=== PATIENT | male | born 1990 ===

== ENCOUNTER 2025-06-01 12:37 | Outpatient (AMB) | payer OTHER, SELFPAY ==
--- NOTE | 2025-06-01 12:38 | MHC.PC.OV ---
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: No Allergies No Known Allergies Allergy (Verified 06/01/25 12:56) Medication List - Last Reconciled 06/01/25 by Benito Carr CNP albuterol sulfate 90 mcg/actuation (Ventolin HFA) 2 puffs inhalation Q6H PRN duloxetine 120 mg PO DAILY lamotrigine 100 mg PO BEDTIME Tobacco use date assessed: 06/01/25 Dental Screening Dental Screen Date: 06/01/25 Did you have a dental visit in the last 12 months?: Yes Did you have a dental problem in the last 6 months where you did not have access to dental care?: No Was dental information given to patient?: Patient has dentist HPI HPI Comments History of Present Illness Details 34-year-old male presents to establish care. He admits to taking his medications as prescribed without adverse reactions. He notes that his anxiety, bipolar, and asthma symptoms are generally well controlled. Prior PCP? - Dr. Bill Last office visit/CPE/labs - About a year ago Acute issue(s) - None Past Medical History - Asthma, anxiety, Bipolar 2 disorder, nausea, work-related lumbar spine injury (was followed [facility]) Surgical History - None Family History - Dad: Anxiety, bipolar disorder, schizophrenia - Mom: Glioblastoma - MGM: Diabetes Social History - Smokes 5-6 cigarettes daily, 13 years smoking hx. Does not vape. Does not drink alcohol. Denies recreational drug use - Has been making healthy dietary choices. Active but does not exercise. Difficulty staying asleep at times, d/t shortness of breath, reports snoring, never had a sleep study Health maintenance - Last eye exam was several years ago. Referred to Ophthalmology for routine eye exam - Last dental visit was over a ago; encouraged to schedule an appointment with his dentist for routine dental care - Last tetanus vaccine was a year ago from PCP. Record not currently available - Has not been vaccinated for the flu this season; declines vaccination Specialists Dr. 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 1. Little interest or pleasure in doing things: several days 2. Feeling down, depressed, or hopeless: several days 3. Trouble falling or staying asleep, or sleeping too much: several days 4. Feeling tired or having little energy: several days 5. Poor appetite or overeating: several days 6. Feeling bad about yourself - or that you are a failure or have let yourself or your family down: several days 7. Trouble concentrating on things, such as reading the newspaper or watching television: several days 8. Moving or speaking so slowly that other people could have noticed. Or the opposite - being so fidgety or restless that you have been moving around a lot more than usual: several days 9. Thoughts that you would be better off or of hurting yourself in some way: not at all Total score: 8 Depression Screening Interpretation: Positive Depression Screening Follow-up: Existing condition and In treatment Depression Screening Done: Yes 44506 - PHQ-9 Billing: Yes Source: Developed by Drs. Quoc Jamison, Trina Nava, Dustin Aguila and colleagues, with an educational jamison from [employer]. Thrive Questionnaire Date Thrive assessed: 06/01/25 I am a: Patient What is your living situation today?: I have a steady place to live Within the past 12 months, did the food you bought not last and you didn't have the money to get more?: Never true Within the past 12 months, did you worry whether your food would run out before you got money to buy more?: Never true Do you have trouble paying for medicines?: No Do you have trouble getting transportation to medical appointments?: No Do you have trouble paying your heating and electricity bill?: No Do you have trouble taking care of your child, family member or friend?: No Do you have trouble with day-to-day activities such as bathing, preparing meals, shopping, managing finances, etc.?: I choose not to answer this question Are you currently unemployed and looking for a job?: I choose not to answer this question Are you interested in more education?: I choose not to answer this question Please select the resources that you would like help with: None Currently or been in a relationship where the following occur: I choose not to answer THRIVE Score: 0 AUDIT C Alcohol Use Questionnaire (AUDIT-C) 1. How often do you have a drink containing alcohol?: Never 3. How often do you have six or more drinks on one occasion?: Never Total Score: 0 Score Reviewed/Action Taken: Yes MARIUM-7 AMB Questionnaire MARIUM-7 Date MARIUM - 7 assessed: 06/01/25 Feeling nervous, anxious, or on edge: 1 = Several days Not being able to stop or control worryin = Several days Worrying too much about different things: 1 = Several days Trouble relaxin = Several days Being so restless that it is hard to sit still: 1 = Several days Becoming easily annoyed or irritable: 3 = Nearly every day Feeling afraid as if something awful might happen: 1 = Several days Total MARIUM-7 score (0-4 normal; 5-9 mild; 10-14 moderate; 15-21 severe): 9 Source: Developed by Drs. Quoc Jamison, Trina Nava, Dustin Aguila and colleagues, with an educational jamison from [employer]. MARIUM-7 Assessment Billing MARIUM-7 Assessment Tool: MARIUM-7 Assessment 95732 ACT Questionnaire In the past 4 weeks, how much of the time did your asthma keep you from getting as much done at work, school or at home?: Some of the time During the past 4 weeks, how often have you had shortness of breath?: 3-6 times a week During the past 4 weeks, how often did your asthma symptoms wake you up at night or earlier than usual in the morning?: Once a week During the past 4 weeks, how often have you had to use your rescue inhaler or nebulizer medication?: 2-3 times a week How would you rate your asthma control during the past 4 weeks?: Somewhat controlled ACT Interpretation: Positive Score: 15 Review of Systems Const Details: Denies chills, Denies fatigue, Denies fever(s), Denies headache(s) and Denies weakness HEENT Denies change in vision, Denies dizziness, Denies headache(s), Denies hearing loss, Denies nasal congestion, Denies sinus pain, Denies sinus pressure and Denies sore throat Card Denies chest pain, Denies lightheadedness, Denies dyspnea and Denies other (palpitations) Resp Denies cough, Denies dyspnea and Denies wheezing GI Denies abdominal pain, Denies melena, Denies hematochezia, Denies change in bowel habits, Denies dyspepsia and Denies nausea Denies hematuria and Denies dysuria Musc Denies abnormal gait, Denies myalgias, Denies arthralgias, Denies numbness and Denies tingling Skin/Breast Denies rash, Denies unusual bruising and Denies wounds Neuro Denies abnormal gait, Denies dizziness, Denies headache(s), Denies memory loss, Denies numbness, Denies Sensory deficit (Neuro), Denies tingling and Denies weakness Psych Denies anxiety, Denies depression and Denies memory loss Endo Denies cold intolerance, Denies fatigue, Denies heat intolerance, Denies polydipsia and Denies polyuria Tommy/Lymph Denies easy bleeding and Denies easy bruising Aller/Immun Denies wheezing Physical exam (Primary Care) Vital Signs: Last Vital Signs Temp 98.2 F 06/01/25 12:46 Pulse 106 H 06/01/25 12:46 Resp 16 06/01/25 12:46 BP 121/72 06/01/25 12:46 Pulse Ox 97 06/01/25 12:46 Oxygen Delivery Method Room Air 06/01/25 12:46 BMI result Body Mass Index 36.8 Tobacco/Smoking Status: Tobacco use Status Tobacco use date assessed 06/01/25 06/01/25 12:50 Patient Tobacco Use Status Current everyday Tobacco 06/01/25 12:50 e-Cigarette/Vaping Use Never Used 06/01/25 12:50 PHQ-9: PHQ-9 Score PHQ-9: Total score 8 06/01/25 16:15 Depression Screening Interpretation: Positive Depression Screening Follow-up: Existing condition and In treatment Thrive Assessment: Date of Thrive Assessment Date Thrive assessed 06/01/25 06/01/25 12:50 Currently or been in a relationship where the following occur: I choose not to answer Const Other: General: no acute distress, well developed, alert and awake Nutritional Appearance: well nourished Orientation/consciousness: patient oriented x3 HENMT Head: Yes normocephalic and Yes atraumatic Ears: hearing grossly normal bilaterally and TM's normal bilaterally General nose exam: Normal external nose present and Normal nares present Mouth: Normal oral and palatal mucosa present and moist mucous membranes Teeth and gingiva: dentition normal Throat: Yes oropharynx normal Eyes Pupils: Equal, round and reactive pupils present and Pupil accommodation reflex normal EOM: EOMs intact bilaterally Neck Neck: Yes normal visual inspection, Yes no lymphadenopathy and Yes trachea midline Thyroid: Thyroid normal Carotids: no bruits Lymphatic: no lymphadenopathy noted Chest Chest palpation & inspection: normal inspection of the chest Resp Effort & Inspection: normal respiratory effort Auscultation: clear to auscultation bilaterally Cardio Rate: regular rate Rhythm: regular rhythm Heart sounds: S1 normal heart sound present, S2 normal heart sound present, no gallops, no murmurs and no rubs Bruits: no abdominal aortic bruits and no carotid bruits GI Palpation (GI): No Abdominal aortic bruit present, Soft to palpation, nontender, No hepatosplenomegaly present and No Rebound tenderness present Auscultation: normal bowel sounds General: Yes no CVA tenderness Back/Spine/Pelvis Back: no CVA tenderness Cervical Spine: cervical ROM normal and No Cervical spine tenderness Thoracic/Lumbar Spine: thoraco-lumbar ROM normal, No pain with thoraco-lumbar ROM, No thoracic spinal tenderness and No lumbar spinal tenderness Skin General: warm and dry. Normal skin color. Normal skin turgor Lesions: no lesions Rashes: no rashes Trauma: no lacerations or abrasions Wounds: no wounds Nails: normal Neuro General: patient oriented x3, gait normal and CN's II-XI intact bilaterally Cranial nerves: Yes Equal, round and reactive pupils present Cognition (Neuro): normal cognition Gait exam (Neuro): Normal gait present Motor exam (neuro): 5/5 motor strength present throughout Sensory Exam: No Sensory deficit (Neuro) Deep tendon reflexes (DTR's): Right patellar reflex intensity grade: 2+ and Left patellar reflex intensity grade: 2+ Extrem General: Yes normal to inspection, No edema and No calf tenderness Psych Appearance: grossly normal Affect: normal affect Attitude: cooperative Thought process: Normal thought process present Coding Level of Care Code New Pt Level 4 (74416) New Pt Prev Care 18-39yr(83847 Diagnoses Normal physical examination, routine Z00.00 Bipolar 2 disorder F31.81 Anxiety F41.9 Sleep disturbance G47.9 Snoring R06.83 Eye exam, routine Z01.00 Obesity (BMI 30-39.9) E66.9 Smoking 1/2 pack a day or less F17.210 Asthma J45.909 Laboratory tests ordered as part of a complete physical exam (CPE) Z00.00 Additional Codes Asthma Control Questionnaire - ACT Interpretation: Positive ([id number]) MARIUM-7 Assessment Billing - MARIUM-7 Assessment Tool: MARIUM-7 Assessment 78098 ([id number]) PHQ-9 - 21179 - PHQ-9 Billing: Yes ([id number]) Assessment & Plan Assessment & Plan (1) Normal physical examination, routine: Code(s): Z00.00 - Encounter for general adult medical examination without abnormal findings Category: Medical Plan: No significant functional limitations noted. Healthy diet and routine exercise encouraged. Perform lab work and follow-up for a telehealth visit for labs review in 2-4 weeks. Return sooner with symptoms or concerns. Verbalized understanding and agreed with the plan. (2) Bipolar 2 disorder: Code(s): F31.81 - Bipolar II disorder Category: Medical Plan: Reports controlled bipolar and anxiety symptoms. PHQ-9 and MARIUM-7 scores revealed mild depression and anxiety. Continue current treatment regimen Routine exercise encouraged Follow-up with psychiatrist as planned. Verbalized understanding and agreed with the plan. (3) Anxiety: Code(s): F41.9 - Anxiety disorder, unspecified Category: Medical Plan: Plan as above. (4) Sleep disturbance: Code(s): G47.9 - Sleep disorder, unspecified Category: Medical Plan: Reports difficulty staying asleep at times, d/t shortness of breath. He snores and has never had a sleep study. Instructed on sleep hygiene. Routine exercise encouraged. Referred [place] [facility] [place]. Follow-up as needed. Verbalized understanding and agreed with the plan. (5) Snoring: Code(s): R06.83 - Snoring Category: Medical Plan: Plan as above. (6) Eye exam, routine: Code(s): Z01.00 - Encounter for examination of eyes and vision without abnormal findings Category: Medical Plan: Last eye exam was several years ago. Referred to Ophthalmology for routine eye exam. (7) Obesity (BMI 30-39.9): Code(s): E66.9 - Obesity, unspecified Category: Medical Plan: He currently weighs 249 lb, BMI is 36.8. Healthy diet and routine exercise encouraged. Follow-up as needed. Verbalized understanding and agreed with the plan. (8) Smoking 1/2 pack a day or less: Code(s): F17.210 - Nicotine dependence, cigarettes, uncomplicated Category: Social Hx Plan: He smokes 5-6 cigarettes daily and has 13 years smoking history. Instructed on the health risks and complications of smoking and cessation encouraged. Nicotine patch ordered; advised to use as prescribed. Instructed on the risks, benefits, and potential adverse reactions of the medication. Follow-up with symptoms or concerns. Verbalized understanding and agreed with the plan. (9) Asthma: Code(s): J45.909 - Unspecified asthma, uncomplicated Category: Medical Plan: He notes that his asthma symptoms are generally well controlled. ACT score is 15, partially control asthma. Continue current treatment regimen. Follow-up as needed. Verbalized understanding and agreed with plan. (10) Laboratory tests ordered as part of a complete physical exam (CPE): Code(s): Z00.00 - Encounter for general adult medical examination without abnormal findings Category: Medical Plan: Fasting labs ordered as part of a complete physical exam. Advised to fast for at least 10 hours before getting labs drawn. May drink water Verbalized understanding and agreed with treatment plan. Orders: Orders Comprehensive [place]. Panel Fast 06/01/25 Z00.00 - Encounter for general adult medical examination without abnormal findings Lipid Panel 06/01/25 Z00.00 - Encounter for general adult medical examination without abnormal findings Microalbumin, Random (w Creat) 06/01/25 Z00.00 - Encounter for general adult medical examination without abnormal findings TSH reflex Free T4 06/01/25 Z00.00 - Encounter for general adult medical examination without abnormal findings UA CC w/rflx Micro + Cult 06/01/25 Z00.00 - Encounter for general adult medical examination without abnormal findings Vitamin D 25-OH Total 06/01/25 Z00.00 - Encounter for general adult medical examination without abnormal findings Complete Blood Count Auto Diff 06/01/25 Z00.00 - Encounter for general adult medical examination without abnormal findings Referrals Sleep Medicine Referral G47.9 - Sleep disorder, unspecified, R06.83 - Snoring Ophthalmology Referral Z01.00 - Encounter for examination of eyes and vision without abnormal findings Medications: New nicotine Apply 14 mg patch daily x6 weeks, then apply 7 mg patch daily x2 weeks 1 patch transdermal Q24H 56 ea 0RF
[2025-06-01 12:46] VITALS: BP 121/72; PULSE 106; RESP 16; TEMP 36.8; O2SAT 97; BMI 36.8
--- OUTSIDE RECORDS SUMMARY | 2025-06-01 13:34 | XMS_ITS | Clinical Summary ---
Author Organization [facility] Address [address] [place] [address] Care Team Providers Care Barrel Cutter Name Role Phone Geremias Borrero MD Primary Care Provider Social History Tobacco Use Types Packs/Day Years Used Date Smoking Tobacco: Never Assessed Sex and Gender Information Value Date Recorded Sex Assigned at Not on file Legal Sex Male 11:37 PM EST Gender Identity Not on file Sexual Orientation Not on file Plan of Treatment Health Maintenance Due Date Last Done Comments DTaP,Tdap,and Td Vaccines (1 - Tdap) 2007 Hepatitis B Vaccines (1 of 3 - 19+ 3-dose series) 2007 COVID-19 Vaccine ( - 2023-2 5 season) 2024 Depression Screening 10/15/2024 Influenza Vaccine (#1) 2025 HIB Vaccines Aged Out No longer eligi ble based on patient's age to complete this topic HPV Vaccines Aged Out No longer eligi ble based on patient's age to complete this topic Hepatitis A Vaccines Aged Out No long er eligible based on patient's age to complete this topic IPV Vaccines Aged Out No longer eligi ble based on patient's age to complete this topic MMR Vaccines Aged Out No longer eligi ble based on patient's age to complete this topic Meningococcal ACWY Vaccine Aged Out N o longer eligible based on patient's age to complete this topic Meningococcal B Vaccine Aged Out No l onger eligible based on patient's age to complete this topic Pneumococcal Vaccine: Pediat rics (0 to 5 Years) and At-Risk Patients (6 to 49 Years) Aged Out No longer eligible b ased on patient's age to complete this topic RSV Immunization Patients Un darrell 20 months Aged Out No longer eligible b ased on patient's age to complete this topic Varicella Vaccines Aged Out No longer eligible based on patient's age to complete this topic Care Teams Barrel Cutter Relationship Specialty Start Date End Date Geremias Borrero MD [address] [place] [address] [place] [id number] PCP - General Internal Medicine 06/27/17
== END 2025-06-01 13:16 | disposition home or self-care (01) ==
LOC: HO.HMCFM 12:38
PROVIDERS: PCP Nurse Practitioner Family; Visit Provider Nurse Practitioner Family
DX: Z00.00 Encounter for general adult medical examination without abnormal findings (principal); F31.81 Bipolar II disorder; Z68.36 Body mass index [BMI] 36.0-36.9, adult; E66.9 Obesity, unspecified; G47.9 Sleep disorder, unspecified; F41.9 Anxiety disorder, unspecified; R06.83 Snoring; F17.210 Nicotine dependence, cigarettes, uncomplicated; J45.909 Unspecified asthma, uncomplicated

== ENCOUNTER → 2025-06-01 12:37 | Outpatient (BNVA) | payer OTHER, SELFPAY | PROVIDERS: PCP Nurse Practitioner Family; Visit Provider Nurse Practitioner Family | DX: Z00.00 Encounter for general adult medical examination without abnormal findings (principal); F31.81 Bipolar II disorder; F41.9 Anxiety disorder, unspecified; J45.909 Unspecified asthma, uncomplicated; G47.9 Sleep disorder, unspecified; R06.83 Snoring; E66.9 Obesity, unspecified; F17.210 Nicotine dependence, cigarettes, uncomplicated; Z68.36 Body mass index [BMI] 36.0-36.9, adult | CPT/HCPCS: 96127; 96160; 99202; 99385 ==

== ENCOUNTER 2025-07-10 13:37 | Outpatient (REF) | payer OTHER, SELFPAY ==
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
--- OUTSIDE RECORDS SUMMARY | 2017-06-25 10:45 | XMS_ITS | Continuity of Care Document ---
Author Organization [facility] Address [address] [place] [address] Phone Care Team Providers Care Strategic Analyst Name Role Phone Perlita Azul DMD Unavailable Unavailable Allergies, Adverse Reactions, Alerts Substance Reaction Status Criticality No Known Allergies Active No Inform ation Medications Medication Instructions Dosage Effective Dates (start - stop) Status Comments penicillin V potassium 500 mg tablet take 1 tablet by oral route every 6 hours - Active ibuprofen 800 mg tablet take 1 tablet by oral route 3 times every day with food as needed 800 MG - Active Procedures Procedure Date Periapical first film Limit oral eval problem focused 017 Advance Directives Directive Yes / No Effective Date File Name No Information Encounters Encounter Description Practice Location Reason(s) For Visit Diagnoses Date Provider Providers Copied on Encounter [facility], [address] [place] [address], [id number], tel:[phone] [facility] Dental examination Jorge Alberto Bhat. [address] [place] [address], [address], . tel:[phone] Family History Family Member Type Diagnosis Age At Onset No Information Payers Payer name Insurance type Covered libertarian ID Authoriza tion(s) Medicaid Dental [id number] Social History Type Description Quantity Date Captured Comments Sex Male Smoking Status No Information Chief Complaint And Reason For Visit No Information Reason For Referral Reason For Referral No Information History Of Present Illness Encounter Date Complaint History Of Prese nt Illness No Information Functional Status Date Functional Assessmen t No Information Instructions Date Instruction Additional Infor mation No Information Assessments Type Assessment Date No Information Patient Care Teams Name Effective Dates (start - stop) Status Members No Information
--- OUTSIDE RECORDS SUMMARY | 2025-07-10 14:54 | XMS_ITS | Clinical Summary ---
[facility] Organization [facility] Address [address] [place] [address] Care Team Providers Care Scabbler Name Role Phone Geremias Borrero MD Primary Care Provider [phone] Social History Tobacco Use Types Packs/Day Years [...] of 3 - 19+ 3-dose series) 2007 Depression Screening 10/15/2024 COVID-19 Vaccine ( - 2023-2 5 season) 2025 Influenza Vaccine (#1) 2025 HIB Vaccines Aged [...] age to complete this topic Care Teams Scabbler Relationship Specialty Start Date End Date Geremias Borrero MD [address] [place] [address] [place] [id number] PCP - General Internal Medicine 06/27/17
[2025-07-10 18:02] LABS: MANUAL DIFF FLAG NO
[2025-07-10 18:12] LABS: Hematocrit 45.4 % (42.0-52.0); Hemoglobin 15.0 g/dl (14.0-18.0); Imm Gran Abs Auto 0.03 X10*3/uL (0.00-0.03); Imm Gran Pct Auto 0.4 % (0.0-0.4); Lymphocytes Absolute Auto 2.2 X10*3/uL (1.2-4.9); Mean Corpuscular HGB Conc 33.0 g/dl (31.0-36.0); Mean Corpuscular Hemoglobin 27.3 pg (27.0-33.0); Mean Corpuscular Volume 82.5 fL (80.0-98.0); NRBC Abs Auto 0.000 X10*3/uL (0.0-0.012); NRBC Pct Auto 0.0 /100WBC (0.0-0.2); Platelet Count 245 X10*3/uL (160-400); Red Blood Count 5.50 X10*6/uL (4.60-5.80); White Blood Count 7.6 X10*3/uL (4.8-10.8)
[2025-07-10 18:39] LABS: Alanine Aminotransferase 19 U/L (0-40); Albumin Level 4.6 g/dL (3.5-5.0); Alkaline Phosphatase 74 U/L (39-117); Anion Gap 11 (12-20); Aspartate Amino Transferase 27 U/L (5-37); Blood Urea Nitrogen 13 mg/dL (9-16); Calcium 9.4 mg/dL (8.4-10.2); Carbon Dioxide 24 mmol/L (22-29); Chloride 108 mmol/L (96-108); Cholesterol 215 mg/dL (<200); Estimated Glomerular Filt Rate > 60; HDL Cholesterol 31 mg/dL (>40); Potassium 4.1 mmol/L (3.3-5.1); Sodium 139 mmol/L (135-145); Total Protein 7.6 g/dL (6.5-8.0); Triglycerides 541 mg/dL (<150)
[2025-07-10 18:41] LABS: Microalbum/Creatinine Ratio Ur 3.9 ug/mg cr (<30)
[2025-07-10 18:57] LABS: Appearance Urine Turbid; Glucose Urine UA Negative (Negative); PH 5.5 (5.0-9.0); Specific Gravity - Urine 1.025 (1.005-1.025)
== END 2025-07-10 13:38 | disposition home or self-care (01) ==
LOC: HO.WFDLDS 13:37
PROVIDERS: Visit Provider Nurse Practitioner Family
DX: Z00.00 Encounter for general adult medical examination without abnormal findings (principal)
CPT/HCPCS: 36415; 80053; 80061; 81003; 82043; 82306; 82570; 84443; 85025

== ENCOUNTER 2025-07-14 10:30 | Outpatient (REF) | payer OTHER, SELFPAY | END 2025-07-14 10:31 | disposition home or self-care (01) | LOC: HO.WFDLDS 10:30 | PROVIDERS: PCP Nurse Practitioner Family; Visit Provider Nurse Practitioner Family | DX: Z30.09 Encounter for other general counseling and advice on contraception (principal); Z71.84 Encounter for health counseling related to travel; E78.5 Hyperlipidemia, unspecified | CPT/HCPCS: 36415; 83721; 99212 ==

== ENCOUNTER 2025-07-14 10:30 | Outpatient (AMB) | payer OTHER, SELFPAY ==
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
--- OUTSIDE RECORDS SUMMARY | 2017-06-25 10:45 | XMS_ITS | Continuity of Care Document ---
Author Organization [facility] Address [address] [place] [address] Phone Care Team Providers Care Publication Director Name Role Phone Perlita Azul DMD Unavailable [...] Diagnoses Date Provider Providers Copied on Encounter [facility], [address] [place] [address], [id number], tel:[phone] [facility] Dental examination Jorge Alberto Bhat. [address] [place] [address], [address], . tel:[phone] Family History Family Member Type Diagnosis Age At Onset No Information Payers Payer name Insurance type Covered democrat ID Authoriza tion(s) Medicaid Dental [id number] Social History Type Description Quantity Date Captured [...]
--- NOTE | 2025-07-14 10:32 | A.OFFPC_ITS ---
Vital Signs 07/14/25 10:37 Height 5 ft 9 in Weight 251 lb 4 oz BMI 37.1 BP 127/67 Blood Pressure Location Lt brachial Position Sitting Respiration 16 Pulse 103 H Pulse Source Pulse Oximeter Temp 98.4 F Temp Source Oral Pulse Oximetry (%) 98 Oxygen Delivery Method Room Air Intake Visit Reasons: Vasectomy referral Intake Note: patient here for referral for him to get a vasectomy and he is going on a crews and need nausea patches. 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 Required: No Allergies No Known Allergies Allergy (Verified 07/14/25 10:52) Medication List - Last Reconciled 07/14/25 by Benito Carr CNP albuterol sulfate 90 mcg/actuation (Ventolin HFA) 2 puffs inhalation Q6H PRN duloxetine 120 mg PO DAILY lamotrigine 100 mg PO BEDTIME nicotine 1 patch transdermal Q24H Tobacco use date assessed: 07/14/25 Dental Screening Dental Screen Date: 07/14/25 Did you have a dental visit in the last 12 months?: No Did you have a dental problem in the last 6 months where you did not have access to dental care?: No Was dental information given to patient?: Yes HPI HPI Comments History of Present Illness Details 34-year-old male presents for review of recent lab results and requests for vasectomy referral. He notes that he is going on a cruise and requests medication for motion sickness. He will be gone for 10 days. He has been using nicotine patch as prescribed and has cut down from smoking 10 cigarettes daily to 2 daily. He states that he started improving his diet since he saw his lipid panel level. He has been exercising. He denies drinking alcohol. He offers no complaints and denies acute symptoms at this time. [facility] Medical History (Updated 07/14/25 @ 11:13 by Benito Carr CNP) Asthma Family History (Updated 06/01/25 @ 12:53 by Roopa Blancas MA) Father FH: mental illness Maternal Grandmother Diabetes Mother Brain tumor Social History (Updated 06/01/25 @ 12:45 by Roopa Blancas MA) Housing: Condominium Patient Tobacco Use Status: Current everyday Tobacco user Cigarettes Per Day: 2 e-Cigarette/Vaping Use: Never Used Second Hand Smoke Exposure: No service: No Current occupational status: employed Current occupation: [employer] Current occupational exposures/hazards: No Cognitive needs: No Hearing needs: No Vision needs: No Questionnaire Thrive Questionnaire Date Thrive assessed: 06/01/25 I am a: Patient What is your living situation today?: I have a steady place to live Within the past 12 months, did the food you bought not last and you didn't have the money to get more?: Never true Within the past 12 months, did you worry whether your food would run out before you got money to buy more?: Never true Do you have trouble paying for medicines?: No Do you have trouble getting transportation to medical appointments?: No Do you have trouble paying your heating and electricity bill?: No Do you have trouble taking care of your child, family member or friend?: No Do you have trouble with day-to-day activities such as bathing, preparing meals, shopping, managing finances, etc.?: I choose not to answer this question Are you currently unemployed and looking for a job?: I choose not to answer this question Are you interested in more education?: I choose not to answer this question Please select the resources that you would like help with: None Currently or been in a relationship where the following occur: I choose not to answer THRIVE Score: 0 AUDIT C Alcohol Use Questionnaire (AUDIT-C) 3. How often do you have six or more drinks on one occasion?: Never Total Score: 0 MARIUM-7 AMB Questionnaire MARIUM-7 Date MARIUM - 7 assessed: 06/01/25 Source: Developed by Drs. Quoc Jamison, Trina Nava, Dustin Aguila and colleagues, with an educational jamison from [email or web address]. Review of Systems Const Details: Const Denies chills, Denies fatigue, Denies fever(s), Denies headache(s) and Denies weakness ENT Denies dizziness and Denies headache(s) Card Denies chest pain, Denies lightheadedness, Denies dyspnea and Denies other (Palpitations) Resp Denies cough, Denies dyspnea, Denies wheezing and Denies other ( shortness of breath) GI Denies abdominal pain, Denies melena, Denies hematochezia, Denies change in bow el habits, Denies dyspepsia and Denies nausea Denies hematuria and Denies dysuria Musc Denies abnormal gait, Denies myalgias, Denies arthralgias, Denies numbness and Denies tingling Skin/Breast Denies rash, Denies unusual bruising and Denies wounds Neuro Denies abnormal gait, Denies dizziness, Denies headache(s), Denies memory loss, Denies numbness, Denies Sensory deficit (Neuro), Denies tingling and Denies weakness Psych Denies anxiety, Denies depression, Denies memory loss Endo Denies cold intolerance, Denies fatigue, Denies heat intolerance, Denies polydipsia and Denies polyuria Aller/Immun Denies wheezing Physical exam (Primary Care) Vital Signs: Last Vital Signs Temp 98.4 F 07/14/25 10:37 Pulse 103 H 07/14/25 10:37 Resp 16 07/14/25 10:37 BP 127/67 07/14/25 10:37 Pulse Ox 98 07/14/25 10:37 Oxygen Delivery Method Room Air 07/14/25 10:37 BMI result Body Mass Index 37.1 Tobacco/Smoking Status: Tobacco use Status Tobacco use date assessed 07/14/25 07/14/25 10:40 Patient Tobacco Use Status Current everyday Tobacco 07/14/25 10:35 e-Cigarette/Vaping Use Never Used 07/14/25 10:35 Thrive Assessment: Date of Thrive Assessment Date Thrive assessed 06/01/25 07/14/25 10:35 Currently or been in a relationship where the following occur: I choose not to answer Const Other: General: no acute distress and well developed Nutritional Appearance: well nourished Orientation/consciousness: patient oriented x3 HENMT Head: Yes normocephalic and Yes atraumatic Eyes General: appearance normal, both eyes and all related structures Pupils: Equal, round and reactive pupils present EOM: EOMs intact bilaterally Resp Effort & Inspection: normal respiratory effort Auscultation: clear to auscultation bilaterally Cardio Rate: regular rate Rhythm: regular rhythm Heart sounds: S1 normal heart sound present, S2 normal heart sound present, no gallops, no murmurs and no rubs GI Palpation (GI): No Abdominal aortic bruit present, Soft to palpation, nontender, No hepatosplenomegaly present and No Rebound tenderness present Auscultation: normal bowel sounds General: Yes no CVA tenderness Back/Spine/Pelvis Back: no CVA tenderness Cervical Spine: cervical ROM normal and No Cervical spine tenderness Thoracic/Lumbar Spine: thoraco-lumbar ROM normal, No pain with thoraco-lumbar ROM, No thoracic spinal tenderness and No lumbar spinal tenderness Extrem General: Yes normal to inspection, No edema and No calf tenderness Skin General: warm and dry. Normal skin color. Normal skin turgor Neuro General: patient oriented x3, gait normal and no focal neuro deficit Cranial nerves: Yes Equal, round and reactive pupils present Cognition (Neuro): normal cognition Gait exam (Neuro): Normal gait present Sensory Exam: No Sensory deficit (Neuro) Psych Appearance: grossly normal Affect: normal affect Attitude: cooperative Thought process: Normal thought process present Coding Level of Care Code Est Pt Level 4 (69101) Diagnoses Hyperlipidemia E78.5 Family planning Z30.09 Travel advice encounter Z71.84 Assessment & Plan Assessment & Plan (1) Hyperlipidemia: Code(s): E78.5 - Hyperlipidemia, unspecified Category: Medical Plan: Recent triglycerides and total cholesterol levels are elevated, 541 and 215 respectively, HDL level is low, 31. He started improving his diet since he saw his lipid panel level. He has been exercising. He denies drinking alcohol. Advised to limit foods high in saturated fat and avoid foods high in trans fat. Routine exercise/weight management encouraged. Will check LDL direct. Fast for 10-12 hours, may drink water, and perform lipid panel blood work 2-3 days before next visit. Follow-up for telehealth visit in 8 weeks. Return sooner with symptoms or concerns. Verbalized understanding and agreed with the plan. (2) Family planning: Code(s): Z30.09 - Encounter for other general counseling and advice on contraception Category: Medical Plan: Request vasectomy. Referred to [facility] urology. (3) Travel advice encounter: Code(s): Z71.84 - Encounter for health counseling related to travel Category: Medical Plan: Scopolamine patch ordered for motion sickness; advised to use as prescribed. Instructed on the risks, benefits, and potential adverse reactions of the medication. Verbalized understanding and agreed with the plan. Orders: Orders Lipid Panel 8 Weeks E78.5 - Hyperlipidemia, unspecified LDL Cholesterol Direct Today E78.5 - Hyperlipidemia, unspecified Referrals Urology Referral Z30.09 - Encounter for other general counseling and advice on contraception Medications: New scopolamine base 1 patch transdermal Q3D PRN 4 ea 0RF nausea and vomiting
[2025-07-14 10:37] VITALS: BP 127/67; PULSE 103; RESP 16; TEMP 36.9; O2SAT 98; BMI 37.1
--- OUTSIDE RECORDS SUMMARY | 2025-07-14 11:42 | XMS_ITS | Clinical Summary ---
Author Organization [facility] ity Address [address] [place] [address] Care Team Providers Care Equipment Superintendent Name Role Phone Geremias Borrero MD Primary [...] age to complete this topic Care Teams Equipment Superintendent Relationship Specialty Start Date End Date Geremias Borrero MD [address] [place] [address] [place] [id number] PCP - General Internal Medicine 06/27/17
== END 2025-07-14 11:08 | disposition home or self-care (01) ==
LOC: HO.HMCFM 10:31
PROVIDERS: PCP Nurse Practitioner Family; Visit Provider Nurse Practitioner Family
DX: E78.5 Hyperlipidemia, unspecified (principal); Z30.09 Encounter for other general counseling and advice on contraception; Z71.84 Encounter for health counseling related to travel